=== PATIENT | male | born 1950 ===

== ENCOUNTER 2024-02-24 05:20 | Day surgery (SDC) | payer OTHER ==
[~2024-02-24 05:20] MED LIST: ATORVASTATIN CA10 MG; BENICAR5 MG; CALTRATE 600+D1 EAC1; OMEPRAZOLE MAGN20 MG; PROTONIX20 MG; VITAMINA C; XARELTO20 MG; [UNRECOGNIZED DRUG - OTHER]; [UNRECOGNIZED DRUG - OTHER]
[2024-02-24] MEDS ORDERED: POVIDONE-IODINE 118 ML BOTT TOP ONE (07:07)
[2024-02-24] MEDS ORDERED: CEFTRIAXONE SODIUM 2,000 MG VIAL ONE (07:07)
[2024-02-24] MEDS ORDERED: HEMOSTATIC MATRIX 1 KIT KIT TOP ONE (07:07)
[2024-02-24] MEDS ORDERED: METRONIDAZOLE/SODIUM CHLORIDE 500 MG/100 ML PIGGYBACK IV ONE (07:08)
[2024-02-24] MEDS ORDERED: DIBUCAINE 30 GM TUBE ONE (08:22)
== END 2024-02-24 14:00 | disposition home or self-care (01) ==
LOC: CIR.AMB 05:20
PROVIDERS: ATTEND Colon & Rectal Surgery
DX: K64.1 Second degree hemorrhoids (principal); K64.4 Residual hemorrhoidal skin tags; K64.8 Other hemorrhoids; K60.5 Anorectal fistula; Z88.8 Allergy status to other drugs, medicaments and biological substances; I10 Essential (primary) hypertension